=== PATIENT | female | born 1980 | race Caucasian/White ===

== ENCOUNTER 2018-09-06 08:07 | Day surgery (SDC) | payer OTHER ==
[2018-09-06 08:40] LABS: Specific Gravity 1.025 (1.005-1.030)
[2018-09-06] MEDS ORDERED: CEFAZOLIN 1GM (PREMIX IV) 1 GM/50 ML BAG ONE (08:44)
[2018-09-06] MEDS ORDERED: Ringers Lactate 1,000 ML IV ONE (08:44)
[2018-09-06] MEDS: BUPIVACA 0.25%/EPI 0.0005% MDV 50 ML VIAL ONE ×2 (08:58→09:36)
[2018-09-06] MEDS ORDERED: FENTANYL CITR 100 MCG/2 ML ONE (09:06)
[2018-09-06] MEDS ORDERED: PROPOFOL 200 MG/20 ML VIAL IV ONE (09:06)
[2018-09-06] MEDS ORDERED: MIDAZOLAM HCL 2 MG/2 ML INJ ONE (09:07)
[2018-09-06] MEDS ORDERED: LIDOCAINE 2% MPF 5 ML VIAL ONE (09:08)
[2018-09-06] MEDS ORDERED: ONDANSETRON 4 MG/2 ML VIAL ONE (09:08)
--- NOTE | 2018-09-06 09:47 | P.OP ---
Preoperative diagnosis: Right Ankle Wound Postoperative diagnosis: Right Ankle Wound Primary procedure: Debridement of Right AnkleWound Anesthesia: MAC + Local Estimated blood loss: <1cc Specimen: Debridement Tissue Findings: 2cm x 1cm granulomatous appearing tissue Complications: None Transferred to: Recovery Room Condition: Good
--- NOTE | 2018-09-06 21:19 | OP ---
Date of Procedure: 09/06/2018 Surgeon: Aayush Yost MD, Preoperative Diagnosis: Right ankle wound. Postoperative Diagnosis: Right ankle wound. Procedure Performed: Debridement of right ankle wound. Anesthesia: MAC plus local with 0.25% Marcaine with epinephrine. Estimated Blood Loss: Less than 1 cc. Specimen: Debridement tissue. Findings: A 2 x 1-cm granulomatous-appearing tissue of the right posterior ankle. Complications: None. Disposition: Transferred to recovery room in good condition. Procedure In Detail: Informed consent was obtained. The patient was brought to the operating room, prepped and draped in the usual sterile fashion. After adequate anesthesia was achieved, an area of the right ankle was identified as prior wound, and an elliptical incision approximately 2 x 1 cm was made through the subcutaneous tissues. This was taken down into the subcutaneous fat, and approximat cassie 2 x 1-cm area ellipse of tissue with granulomatous appearance at the base was removed and sent of f for pathologic examination. All infected tissue was removed, and only good viable tissue was left behind. The area was copiously irrigated and closed with 2 vertical mattress sutures of 2-0 nylon wi th good approximation of tissues. A sterile dressing was placed overtop. The patient tolerated the procedure well without evidence of complication and transferred to PACU in good condition. All counts were correct at the end of the case. TOBI/ARMAND Voice ID: [id number] Report ID: [id number]
== END 2018-09-06 10:45 | disposition home or self-care (01) ==
LOC: OR 08:07
PROVIDERS: ATTEND Surgery
PROC: 0JDQ0ZZ Extraction of Right Foot Subcutaneous Tissue and Fascia, Open Approach (ICD-10-PCS; principal; 2018-09-06 09:45)
DX: S91.001A Unspecified open wound, right ankle, initial encounter (principal); L92.9 Granulomatous disorder of the skin and subcutaneous tissue, unspecified; L02.91 Cutaneous abscess, unspecified; Z88.3 Allergy status to other anti-infective agents; Z88.6 Allergy status to analgesic agent; Z91.013 Allergy to seafood
CPT/HCPCS: 81025; 88304; J0690; J2250; J2405; J2704; J3010